=== PATIENT | female | born 1975 | race Caucasian/White ===

== ENCOUNTER 2020-02-17 00:13 | Emergency (ER) | payer BC ==
[2020-02-17] MEDS ORDERED: SODIUM CHLORIDE 0.9% (FLUSH) 10 ML SYG IV PRN (00:15)
[2020-02-17] MEDS ORDERED: MORPHINE SULFATE INJ 10 MG/ML VIAL IV ONE (00:31)
[2020-02-17] MEDS ORDERED: PROMETHAZINE HCL INJ 12.5 MG in SODIUM CHLORIDE 0.9% 50ML 50 ML IVPB ONE (00:32)
--- NOTE | 2020-02-17 00:43 | ED.PDOC ---
History of Present Illness - General Time Seen by Provider: 02/17/20 00:14 Source: patient, RN notes reviewed, Vital Signs reviewed, family Exam Limitations: no limitations - History of Present Illness Initial Comments: 44 y/o female 11 weeks has had increasing L flank pain and dysuria. She has a hx of kidney stones and had lithotripsy on the R side a few months ago. She was to have had the same on the L side but was found to be . She had 3 failed IVF treatments but this a naturally concieved . Timing/Duration: this evening Quality: moderate, stabbing Onset Location: LLQ, left flank Activites at Onset: none Prior abdominal problems: similar symptoms Improving Factors: nothing Worsening Factors: nothing Associated Symptoms: abdominal pain, dysuria, urinary frequency Allergies/Adverse Reactions: Allergies Levofloxacin [From Levaquin] Allergy (Verified 02/17/20 01:05) Home Medications: Ambulatory Orders HYDROcodone 5MG/APAP 325MG [[place] 5/325] 1 - 2 ea PO .Q4H PRN #24 tab 02/17/20 Family Medical History - Family History Mother Family History: Unknown Physical Exam - Physical Exam General Appearance: Anxious, No apparent distress Eyes, Ears, Nose, Throat Exam: PERRL/EOMI, normal ENT inspection Neck: full range of motion, supple, normal inspection Cardiovascular/Respiratory: regular rate, rhythm, no M/R/G, no JVD, normal breath sounds, no respiratory distress Gastrointestinal/Abdominal: normal bowel sounds, non tender, soft Back Exam: CVA tenderness (L) Extremity: normal range of motion, normal inspection, no pedal edema Neurologic: no motor/sensory deficits, alert, normal mood/affect, oriented x 3 Skin Exam: normal color, warm/dry Progress - Progress Progress: 02/17/20 01:37 pt has decided to go to [place] early this morning where her urologist and OB doctor are Departure - Departure Clinical Impression: Ureteral colic, Kidney calculi Qualifiers: Weeks of gestation: 11 weeks Qualified Code(s): Z3A.11 - 11 weeks gestation of Time of Disposition: 01:39 Disposition: Discharge to Home or Self Care Condition: Good Instructions: Kidney Stones in Adults Referrals: KIAN JAFFE [Primary Care Provider] - 1-2 Weeks Prescriptions: HYDROcodone 5MG/APAP 325MG [[place] 5/325] 1 - 2 ea PO .Q4H PRN #24 tab PRN Reason: Pain -- Moderate Home Medications: Ambulatory Orders HYDROcodone 5MG/APAP 325MG [[place] 5/325] 1 - 2 ea PO .Q4H PRN #24 tab 02/17/20
[2020-02-17 01:05] VITALS: O2SAT 100
[2020-02-17] MEDS ORDERED: PROMETHAZINE HCL 25 MG TAB PO PRN (01:42)
[2020-02-17] MEDS ORDERED: HYDROCOD/APAP 5/325 (ER DISP) #3 TAB PO ONE (01:43)
[2020-02-17 01:44] VITALS: BP 128/75; TEMP 98.3
== END 2020-02-17 01:57 | disposition home or self-care (01) ==
LOC: ER 00:13
DX: O26.831 Pregnancy related renal disease, first trimester (principal); N20.0 Calculus of kidney; O09.511 Supervision of elderly primigravida, first trimester; Z3A.11 11 weeks gestation of pregnancy; Z87.442 Personal history of urinary calculi; Z88.1 Allergy status to other antibiotic agents
CPT/HCPCS: 36415; 80048; 80076; 81001; 82150; 85025; A4216; J2270; J2550; Q0169